=== PATIENT | male | born 1950 | race Hispanic/Latino ===

== ENCOUNTER → 2018-09-05 | Day surgery (SDC) | payer MEDICARE ==
[2018-09-03 14:05] LABS: BASOPHILS % 0.5 % (0.0-1.0); EOSINOPHILS # (AUTO) 0.1 (0.0-0.4); EOSINOPHILS % 2.1 % (0.0-6.0); HEMATOCRIT 37.2 % (38.2-49.6); HEMOGLOBIN 12.1 g/dL (14.0-18.0); LYMPHOCYTES # (AUTO) 1.7 (1.0-3.2); LYMPHOCYTES % 25.9 % (18.0-39.1); MEAN CORPUSCULAR HEMOGLOBIN 29.5 pg (28-32); MEAN CORPUSCULAR HGB CONC 32.5 g/dL (31-35); MEAN CORPUSCULAR VOLUME 90.7 fL (81-99); MONOCYTES # (AUTO) 0.6 (0.2-0.8); MONOCYTES % 9.3 % (4.4-11.3); NEUTROPHILS # (AUTO) 4.1 (2.1-6.9); NEUTROPHILS % 61.7 % (38.7-80.0); PLATELET COUNT 216 x10e3/uL (140-360); RED CELL DISTRIBUTION WIDTH 13.2 % (11.7-14.4)
--- NOTE | 2018-09-03 14:25 | Diagnostic Imaging Report ---
EXAMINATION: CHEST 2 VIEWS INDICATION: Pre-op. COMPARISON: None FINDINGS: TUBES and LINES: None. LUNGS: Lungs are well inflated. There is no evidence of pneumonia or pulmonary edema. Mild linear and patchy subsegmental atelectasis in the left lung. PLEURA: No pleural effusion or pneumothorax. HEART AND MEDIASTINUM: The cardiomediastinal silhouette is unremarkable. There are atherosclerotic calcifications within the aorta. BONES AND SOFT TISSUES: No acute osseous abnormality. UPPER ABDOMEN: No free air under the diaphragm. IMPRESSION: No acute radiographic abnormality. Signed by: Dr. Girish Cisse MD on 09/03/2018 2:21 PM
[~2018-09-05] MED LIST: ACETAMINOPHEN 1000 MG/100 ML 100 ML IV ONE; BUPIVACAINE HCL 0.5% INJ 30 ML VIAL INJ ONE; CEFAZOLIN SOD 2 GM/D5W 50ML 50 ML IV ONE; DEXAMETHASONE SOD PHOS INJ 4 MG/ML VIAL ONE; EPHEDRINE SULFATE INJ 50 MG/10 ML SYR ONE; EPINEPHRINE HCL 1:1000 1ML 1 MG/ML AMP ONE; ESMOLOL HCL 100MG/10ML 10 MG/ML VIAL ONE; FENTANYL CITRATE/PF 100MCG/2 ML INJ ONE; GLYCOPYRROLATE INJ 1MG/ 5 ML SYR ONE; HYDROCODONE/APAP 5MG-325MG TAB ONE; IBUPROFEN400 MG PO; LIDOCAINE HCL 2% LOCAL INJ 5 ML SDV VIAL INJ ONE; MIDAZOLAM HCL 2 MG/2 ML VIAL ONE; NEOSTIGMINE 5 MG/5ML SYR ONE; ONDANSETRON HCL INJ 2MG/ML 2ML 2 MG/ML VIAL ONE; PROPOFOL IV EMULSION 10 MG/ML 20 ML VIAL ONE; ROCURONIUM BROMIDE 10 MG/ML 5ML VIAL ONE; SEVOFLURANE INHAL SOLN 250 ML PEN BTL ONE; TYLENOL PO
--- OUTSIDE RECORDS SUMMARY | 2018-09-05 06:47 | XMS REPORT ---
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 Allergies, Adverse Reactions, Alerts This patient has no known allergies or adverse reactions. Medications This patient has no known medications. Results Test Description Test Time Test Comments Text Results Atomic Results Result Comments CHEST 2 VIEWS 2018-09-03 14:19:00 [place] [address] Patient Name: JEANNIE LAWTON MR #: [id number] : 1950 Age/Sex: 67/M Req #: [id number] Adm Physician: Ordered by: MARTA SCALES MD Report #: [id number] Location: OR Room/Bed: Procedure: [id number] DX/CHEST 2 VIEWS Exam Date: Exam Time: REPORT STATUS: Signed EXAMINATION: CHEST 2 VIEWS INDICATION: Pre-op. COMPARISON: None FINDINGS: TUBES and LINES: None. LUNGS: Lungs are well inflated. There is no evidence of pneumonia or pulmonary edema. Mild linear and patchy subsegmental atelectasis in the left lung. PLEURA: No pleural effusion or pneumothorax. HEART AND MEDIASTINUM: The cardiomediastinal silhouette is unremarkable. There are atherosclerotic calcifications within t he aorta. BONES AND SOFT TISSUES: No acute osseous abnormality. UPPER ABDOMEN: No free air under the diaphragm. IMPRESSION: No acute radiographic abnormality. Signed by: Dr. Naheed Khan MD on 09/03/2018 2:21 PM Dictated By: NAHEED KHAN MD 1421 Transcribed By: CYNDY on 09/03/18 1421 COPY TO: MARTA SCALES MD
[2018-09-05 15:00] VITALS: BP 126/74
--- NOTE | 2018-09-06 17:38 | Operative Report ---
DATE OF PROCEDURE: 09/05/2018 SURGEON: Frank Pillai MD PREOPERATIVE DIAGNOSES: Right shoulder rotator cuff tear, right shoulder AC joint arthritis. 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 Right shoulder rotator cuff tear, right shoulder AC joint arthritis. OPERATIONS AND PROCEDURES PERFORMED: The patient underwent right shoulder examination under anesthesia, right shoulder arthroscopy, right shoulder arthroscopic debridement of synovitis, right shoulder debridement of a partial biceps tendon tear, right shoulder chondroplasty of the glenoid and humeral head, right shoulder arthroscopic rotator cuff reconstruction, right shoulder arthroscopic subacromial decompression and acromioplasty. The right shoulder arthroscopic distal clavicle resection. ASSEMBLER CAMPER: Jasmina Daly. ANESTHESIA: General endotracheal intubation anesthesia as well as regional block. IV FLUIDS: Per the anesthesia record. COMPLICATIONS: None. BRIEF DISCUSSION OF THE PATIENT'S OPERATIVE PROCEDURE: Mr. Drake was taken to the operating room, placed in supine position on the operating table. Upon induction of general anesthesia as well as the endotracheal intubation, the operating room table was converted to beach chair type position. Examination of the patient's right shoulder demonstrated no gross abnormalities. The patient had full range of motion of the shoulder joint, no evidence of instability. The patient's shoulder and upper extremity were prepped and draped in standard surgical fashion. Standard posterior lateral and anterior portals were created without difficulty. The scope was placed within the shoulder joint atraumatically. Examination of the shoulder demonstrated a partial tear of the biceps tendon. There was also chondromalacia of both the glenoid and humeral surfaces. There were no loose bodies within the shoulder joint. There was a full-thickness rotator cuff tear as well as a significant partial-thickness tear of the infraspinatus tendon. There is also diffuse synovitis within the shoulder joint. A shaver was placed in the shoulder and synovitis was debrided. The partial biceps tendon injury was also debrided at this time. Chondroplasties of the humeral head and glenoid were performed. The rotator cuff was debrided at its insertion site. The synovitis was also debrided. The insertion site for the rotator cuff was also debrided to a bleeding bony bed. The shoulder was deflated with sterile normal saline. The scope was placed in subacromial space and significant bursal inflammation was encountered. A lateral portal was created with an [id number]. A bursectomy was performed. The rotator cuff injury was easily identified. There was also a significant partial thickness tear of the infraspinatus tendon. This portion of the tendon was also debrided to healthy tissue. The insertion site was also debrided further to create an appropriate bleeding bony bed. A single triple loaded suture anchor was inserted in the shoulder joint and the suture arms from that anchor were then woven through the rotator cuff tissue. The rotator cuff tissue was then advanced and tied firmly over the greater tuberosity with repairing the rotator cuff injury. The coracoacromial ligament was then resected. Aggressive acromioplasty was then performed. The anterior portal was placed in the subacromial space at the level of the AC joint. The acromioclavicular joint was isolated. A shaver was then used to resect a 1 cm section of the distal clavicle. Thus, the scope was then transferred to the anterior portal to confirm completion of the distal clavicle resection. This shoulder was inflated with sterile normal saline. Portal sites were closed and sterile dressings were applied. The patient was also provided a shoulder immobilizer. Jasmina Daly acted as nurse first assist for this case and was necessary for both prepping and draping of the patient as well as positioning the arm in the passage of the sutures that allowed this case to be successful. MD PAIGE Benedict/MICHAEL /[id number]
== END | disposition home or self-care (01) ==
LOC: OR 06:44
PROVIDERS: ATTEND Specialist
DX: S46.091A Other injury of muscle(s) and tendon(s) of the rotator cuff of right shoulder, initial encounter (principal); M19.011 Primary osteoarthritis, right shoulder; S46.211A Strain of muscle, fascia and tendon of other parts of biceps, right arm, initial encounter; M94.211 Chondromalacia, right shoulder; I44.7 Left bundle-branch block, unspecified; X58.XXXA Exposure to other specified factors, initial encounter; Z01.810 Encounter for preprocedural cardiovascular examination; Z01.812 Encounter for preprocedural laboratory examination; Z01.818 Encounter for other preprocedural examination
CPT/HCPCS: 29824; 29826; 29827; 36415; 71046; 85025; 93005; J0131; J0171; J0690; J1100; J2001; J2250; J2405; J2704; J3490

== ENCOUNTER → 2020-03-17 | Outpatient (CLI) | payer MEDICARE ==
[~2020-03-17] MED LIST changes: -ACETAMINOPHEN 1000 MG/100 ML 100 ML IV ONE; -BUPIVACAINE HCL 0.5% INJ 30 ML VIAL INJ ONE; -CEFAZOLIN SOD 2 GM/D5W 50ML 50 ML IV ONE; -DEXAMETHASONE SOD PHOS INJ 4 MG/ML VIAL ONE; -EPHEDRINE SULFATE INJ 50 MG/10 ML SYR ONE; -EPINEPHRINE HCL 1:1000 1ML 1 MG/ML AMP ONE; -ESMOLOL HCL 100MG/10ML 10 MG/ML VIAL ONE; -FENTANYL CITRATE/PF 100MCG/2 ML INJ ONE; -GLYCOPYRROLATE INJ 1MG/ 5 ML SYR ONE; -HYDROCODONE/APAP 5MG-325MG TAB ONE; -LIDOCAINE HCL 2% LOCAL INJ 5 ML SDV VIAL INJ ONE; -MIDAZOLAM HCL 2 MG/2 ML VIAL ONE; -NEOSTIGMINE 5 MG/5ML SYR ONE; -ONDANSETRON HCL INJ 2MG/ML 2ML 2 MG/ML VIAL ONE; -PROPOFOL IV EMULSION 10 MG/ML 20 ML VIAL ONE; -ROCURONIUM BROMIDE 10 MG/ML 5ML VIAL ONE; -SEVOFLURANE INHAL SOLN 250 ML PEN BTL ONE; +ULTRACET TABLE1 EACH PO; +ULTRAM50 MG PO
== END ==
LOC: RAD 14:11
PROVIDERS: ATTEND Internal Medicine
DX: Z01.818 Encounter for other preprocedural examination (principal)
CPT/HCPCS: 71046

== ENCOUNTER 2022-02-17 09:07 | Emergency (ER) | payer MEDICARE, OTHER ==
[~2022-02-17] VITALS: Ht 162.6 cm; Wt 71.7 kg
[2022-02-17 09:35] LABS: BASOPHILS % 0.4 % (0.0-1.0); EOSINOPHILS # (AUTO) 0.4 (0.0-0.4); EOSINOPHILS % 7.6 % (0.0-6.0); HEMATOCRIT 44.1 % (38.2-49.6); HEMOGLOBIN 14.5 g/dL (14.0-18.0); LYMPHOCYTES # (AUTO) 1.5 (1.0-3.2); LYMPHOCYTES % 27.8 % (18.0-39.1); MEAN CORPUSCULAR HGB CONC 32.9 g/dL (31-35); MEAN CORPUSCULAR VOLUME 91.1 fL (81-99); MONOCYTES # (AUTO) 0.7 (0.2-0.8); MONOCYTES % 12.7 % (4.4-11.3); NEUTROPHILS # (AUTO) 2.8 (2.1-6.9); NEUTROPHILS % 51.3 % (38.7-80.0); PLATELET COUNT 206 x10e3/uL (140-360); RED BLOOD COUNT 4.84 x10e6/uL (4.3-5.7); RED CELL DISTRIBUTION WIDTH 12.6 % (11.7-14.4)
[2022-02-17 09:56] LABS: ALANINE AMINOTRANSFERASE 25 IU/L (0-55); ALBUMIN 4.2 g/dL (3.5-5.0); ALKALINE PHOSPHATASE 64 IU/L (40-150); ANION GAP 16.7 mmol/L (8-16); BLOOD UREA NITROGEN 11 mg/dL (7-26); BUN/CREATININE RATIO 13 (6-25); CALCIUM 9.1 mg/dL (8.4-10.2); CARBON DIOXIDE 21 mmol/L (22-29); CHLORIDE 105 mmol/L (98-107); CREATINE KINASE 72 IU/L (30-200); CREATININE, SERUM 0.83 mg/dL (0.72-1.25); GLUCOSE 121 mg/dL (74-118); POTASSIUM 3.7 mmol/L (3.5-5.1); SODIUM 139 mmol/L (136-145)
[2022-02-17] MEDS ORDERED: SODIUM CHLORIDE 0.9% 500ML 500 ML IV ONE (10:45)
[2022-02-17 12:38] LABS: CLARITY,URINE CLEAR (CLEAR); COLOR,URINE YELLOW (YELLOW); KETONES,URINE TRACE (NEGATIVE); LEUKOCYTE ESTERASE ,URINE NEGATIVE (NEGATIVE); NITRITE,URINE NEGATIVE (NEGATIVE); PROTEIN,URINE DIPSTICK TRACE (NEGATIVE); URINE UROBILINOGEN 0.2 mg/dL (0.2 - 1)
[2022-02-17 13:06] LABS: RBC,URINE 0-5 /HPF (0-5)
[2022-02-17 13:07] LABS: BACTERIA,URINE MODERATE /HPF; EPITHELIAL CELLS,URINE FEW /LPF
[2022-02-17 13:36] VITALS: BP 146/86
== END 2022-02-17 13:42 | disposition home or self-care (01) ==
LOC: ER 09:11
DX: R42 Dizziness and giddiness (principal); J10.1 Influenza due to other identified influenza virus with other respiratory manifestations; I10 Essential (primary) hypertension; E78.5 Hyperlipidemia, unspecified; R94.31 Abnormal electrocardiogram [ECG] [EKG]; Z96.652 Presence of left artificial knee joint
CPT/HCPCS: 36415; 70450; 70544; 70547; 70551; 71045; 80053; 81001; 82550; 82553; 84484; 85025; 87086; 93005; 94760; 99284; J7040